=== PATIENT | female | born 1945 | race Caucasian/White ===

== ENCOUNTER 2017-11-03 14:40 | Inpatient (IN) | payer OTHER ==
[~2017-11-03] VITALS: Ht 162.6 cm; Wt 44.0 kg
[2017-11-03 14:40] VITALS: BP_SYST 129
--- NOTE | 2017-11-03 14:40 | NUR ---
Arrived via BLS ambulance for eval. She has been diagnosed with PNA and is under hospice care for COPD. Pt has been taking Z-arlette without improvement. Placed in room 7 . Placed on stove refinisher, blood pressure machine and pulse oximeter. To gown for exam. Side rails up. Report given to Renetta MARLOW.
--- NOTE | 2017-11-03 14:45 | NUR ---
Dr. Soto at bedside assessing patient.
[2017-11-03] MEDS ORDERED: NACL 0.9% 1,000 ML IV ONE (14:52)
[2017-11-03] MEDS ORDERED: IPRATROPIUM BROM 0.5 MG/2.5 ML VIAL.NEB (ATROVENT) IH ONE (15:00)
[2017-11-03] MEDS ORDERED: MAGNESIUM SULFATE 1 GM in NS 50 ML IV ONE (15:00)
[2017-11-03] MEDS ORDERED: ALBUTEROL SULFATE 0.083% 2.5 MG/3 ML VIAL.NEB IH ONE (15:00)
[2017-11-03] MEDS ORDERED: ASPIRIN 81 MG TAB.CHEW PO ONE (15:00)
[2017-11-03] MEDS ORDERED: methylPREDNISolone SOD SUCC/PF 62.5 MG/ML VIAL IVP ONE (15:00)
--- NOTE | 2017-11-03 15:45 | NUR ---
IV # 22 gauge angiocath placed to LFA. Use of asceptic technique. Opsite placed over site. Blood return noted. Blood for lab drawn from site. Flushed with 10 cc of normal saline. No evidence of infiltration noted. Patient tolerated well.
[2017-11-03] MEDS ORDERED: MAGNESIUM SULFATE 1 GM/2 ML VIAL ONE (15:52)
[2017-11-03 16:39] LABS: HEMATOCRIT 39.5 % (36-48); HEMOGLOBIN 12.7 g/dL (12.0-16.0); MEAN CORPUSCULAR HEMOGLOBIN 29 pg (27-31); MEAN CORPUSCULAR HGB CONC 32 % (32-36); MEAN CORPUSCULAR VOLUME 91 fL (79.0-98.0); PLATELET COUNT (AUTO) 397 K/uL (130-430); RED BLOOD CELL COUNT(AUTO) 4.33 MIL/uL (4.2-6.2); RED CELL DISTRIBUTION WIDTH 11.9 % (9.0-15.0); WHITE BLOOD COUNT (AUTO) 10.4 K/uL (4.8-10.8)
[2017-11-03 16:56] LABS: INR 0.9 (0.8-1.2); PROTHROMBIN TIME 9.3 SECS (9.5-12.5)
[2017-11-03 17:21] LABS: BAND % (MANUAL) 1 % (0-6); BASOPHILS % (MANUAL) 0 % (0-2); EOSINOPHILS % (MANUAL) 0 % (0-7); LYMPHOCYTES % (MANUAL) 1 % (20-46); MONOCYTES % (MANUAL) 4 % (0-11)
[2017-11-03] MEDS ORDERED: cefTRIAXone 1 GM in D5W 50 ML IV ONE (17:30)
[2017-11-03] MEDS ORDERED: cefTRIAXone 1 GM VIAL ONE (17:30)
[2017-11-03] MEDS ORDERED: IPRATROPIUM/ALBUTEROL SULFATE 3 ML AMPUL.NEB ONE (17:52)
[2017-11-03 18:02] LABS: BILIRUBIN,URINE NEGATIVE (NEGATIVE); BLOOD, URINE TRACE (NEGATIVE); CLARITY/URINE CLEAR (CLEAR); COLOR,URINE YELLOW (YELLOW); GLUCOSE,URINE TRACE (NEGATIVE); KETONES,URINE NEGATIVE (NEGATIVE); LEUKOCYTE ESTERASE ,URINE NEGATIVE (NEGATIVE); NITRITE, URINE NEGATIVE (NEGATIVE); PROTEIN URINE NEGATIVE (NEGATIVE); UROBILINOGEN,URINE 0.2 (0.2-1.0)
[2017-11-03 18:04] LABS: BACTERIA,URINE FEW /HPF (None Seen); MUCUS,URINE None Seen /LPF (None Seen); RBC,URINE NONE SEEN /HPF (0-3); WBC,URINE 0-3 /HPF (0-3)
[2017-11-03 18:20] LABS: CHLORIDE 93 mmol/L (98-107); CREATININE 0.41 mg/dL (0.55-1.30); GLUCOSE 162 mg/dL (70-99); POTASSIUM 4.4 mmol/L (3.5-5.1); SODIUM SERUM 129 mmol/L (136-145); UREA NITROGEN, BLOOD 15 mg/dL (8-21)
[2017-11-03 18:21] LABS: ANION GAP < 3 (5-15)
[2017-11-03 18:26] LABS: ALANINE AMINOTRANSFERASE 17 U/L (12-78); ALBUMIN 2.9 g/dL (3.4-4.8); AMYLASE 60 U/L (0-100); ASPARTATE AMINOTRANSFERASE 20 U/L (10-37); LIPASE 131 U/L (73-393); TOTAL BILIRUBIN 0.3 mg/dL (0.0-1.0)
--- NOTE | 2017-11-03 19:20 | NUR ---
Patient endorsed to incoming nurse Melani Wright
--- NOTE | 2017-11-03 19:30 | NUR ---
PT DAUGHTER STATES SHE HAS BEEN HAVING TROUBLE BREATHING FOR 1 WEEK NOW, HAS BEEN TAKING ANTIBIOTICS FOR RECENT DX OF PNA. PT STATES SHE HAS NOT HAD AN APPETITE FOR A FEW DAYS. A/OX4, AFEBRILE. SOB W/ EXERTION. O2SAT 93%. SAFETY PRECAUTIONS IN PLACE, WILL CONTINUE TO MONITOR.
[2017-11-03] MEDS ORDERED: AZITHROMYCIN 500 MG in NS 250 ML IV SCH (19:45)
[2017-11-03] MEDS ORDERED: ALPR0.2583 PO (20:47)
[2017-11-03] MEDS ORDERED: AMLO5TAB4 PO (20:47)
[2017-11-03] MEDS ORDERED: IPRA3AMP9 INH (20:50)
[2017-11-03] MEDS ORDERED: PRED20TA PO (20:50)
[2017-11-03] MEDS ORDERED: ALBU8.5H8 INH (20:54)
--- NOTE | 2017-11-03 21:00 | NUR ---
Patient will be admitted to care of DR. RINCON. Admitted to TELEMETRY unit. Will go to room 111B. Belongings list completed. Summary report printed. Report given at bedside TO ADMITTING NURSE ELE ONTIVEROS.
--- NOTE | 2017-11-03 21:02 | NUR ---
ADMISSION NOTE Received patient from ER via michele, received report from janet MARLOW. Patient admitted with diagnosis of copd exacerbation. Patient oriented to hospital routine, call light, toileting and safety-patient verbalized understanding. Patient is stable. Admission started.
[2017-11-03 21:17] VITALS: BP_SYST 147
--- NOTE | 2017-11-03 21:20 | NUR ---
RECEIVED PATIENT/REPORT FROM AN Patient arrived from ER. Report received from AN. Patient is alert, oriented and anxious. She requested Xanax. The nurse will call Dr. Beal for orders. Son is at the bed side. No pain or respiratory distress noted.
[2017-11-03] MEDS ORDERED: BUDE6HFA INH (21:21)
[2017-11-03] MEDS ORDERED: LEVO500T20 PO (21:22)
--- NOTE | 2017-11-03 21:25 | NUR ---
DR. PELLETIER PAGED. WAITING FOR RESPONSE
--- NOTE | 2017-11-03 21:35 | NUR ---
DR. Beal CALLED BACK Dr. Beal called back. An order for Xanax 0.5 mg X1 received. The nurse called the remote pharmacy for expedite verification and later administered the medication. Son left for the night. Patient fell asleep in bed. No distress or pain noted. Fall precautions in place. IV antibiotic also administered per MD order.
--- NOTE | 2017-11-03 21:58 | NUR ---
paged Dr. Beal for orders called spoke with George
[2017-11-03] MEDS ORDERED: methylPREDNISolone SOD SUCC 40 MG/ML VIAL IVP ONE (22:00)
[2017-11-03] MEDS ORDERED: ALPRAZolam 0.25 MG TABLET PO ONE (22:15)
[2017-11-03] MEDS ORDERED: AZITHROMYCIN 500 MG/VIAL (ZITHROMAX) IV ONE (22:16)
[2017-11-03] MEDS: NORMAL SALINE 5 ML DISP.SYRIN IVF SCH (22:43)
[2017-11-03] MEDS: IPRATROPIUM BROM 0.5 MG/2.5 ML VIAL.NEB (ATROVENT) INH SCH (23:29)
--- NOTE | 2017-11-04 00:10 | NUR ---
ROUNDS Patient in bed sleeping. No pain or distress noted.
[2017-11-04 00:36] VITALS: BP_SYST 123
[2017-11-04 01:45] VITALS: BP_SYST 123
--- NOTE | 2017-11-04 02:10 | NUR ---
ROUNDS Patient in bed sleeping. No distress or pain noted.
--- NOTE | 2017-11-04 02:29 | NUR ---
RAPID RESPONSE CALLED A little after the nurse left the room, the patient woke up and called the ACADEMIC SUPPORT SPECIALIST to be cleaned up. While she was being cleaned, she developed increasing SOB and discomfort, and she stated she cannot breath. Oxygen saturation was in the lower 80s. Patient was on 2 l O2 via nasal cannula. The ACADEMIC SUPPORT SPECIALIST called the nurse. The nurse together with other nurses went to the room where the patient was sitting in bed complaining of severe shortness of breath and anxiety. At the same time she developed tachycardia going up to 137 with multiple PVCs and PACs and elevated T-wave. The monitor at the nursing station was displaying V-tach at times. The nurse called rapid response. Rapid response was executed. 12-lead EKG, ABGs, ACCU check were executed, patient was placed on oxygen mask. The nurse called Dr. Beal at 02:[address] Beal returned the call at 02:35. The nurse informed her of the situation. Dr. Beal ordered Amiodarone 150 mg IVp X1 followed up by Amiodarone drip dosed by pharmacy. She also ordered Xanax 0.5 mgX1 and breathing treatment. The nurse called the remote pharmacy too speed up the verification. She spoke with Michelle. Orders executed. The rapid response ended at 02:55 am.
[2017-11-04] MEDS ORDERED: AMIODARONE HCL 150 MG/3ML VIAL IVP ONE (02:45)
[2017-11-04] MEDS ORDERED: AMIODARONE HCL 150 MG/3ML VIAL ONE (02:54)
[2017-11-04] MEDS ORDERED: AMIODARONE HCL 900 MG in D5W 482 ML IV SCH (03:00)
[2017-11-04] MEDS ORDERED: ALPRAZolam 0.25 MG TABLET PO ONE (03:00)
[2017-11-04] MEDS ORDERED: COMMUNICATION ORDER XX ONE (03:00)
[2017-11-04] MEDS: IPRATROPIUM BROM 0.5 MG/2.5 ML VIAL.NEB (ATROVENT) INH SCH ×4 (03:17→19:52)
[2017-11-04] MEDS ORDERED: AMIODARONE HCL 900 MG/18 ML VIAL IV ONE (04:05)
--- NOTE | 2017-11-04 04:30 | NUR ---
AMIODARONE DRIP STARTED Amiodarone drip started dosed per eMAR instructions from pharmacy. Patient requested the nurse to stay next to her bed and wave with a paper, because that "helped her breathing a lot". Oxygen saturation went up to 94%. Patient refused the Venturi mask and wanted to go back to the nasal cannula. The RT put her on 2L O2 NC. SaO2 94-97%. Oxygen rate decreased to 1 L/min to maintain the oxygen saturation not higher than 93%.
[2017-11-04] MEDS: NORMAL SALINE 5 ML DISP.SYRIN IVF SCH ×2 (06:00→22:00)
[2017-11-04 08:00] VITALS: BP_SYST 154
--- NOTE | 2017-11-04 08:00 | NUR ---
initial notes rec patient asleep but arousable to stimuli. ivf of amiodarone infusing well. no infiltration noted. resp easy and unlabored. bed in low position and side rails up and locked.call light within reached and knows when to call for assistance.
--- NOTE | 2017-11-04 08:53 | NUR ---
CLOSING NOTE Patient sitting in bed resting. She requested a bed hill. No distress or pain noted. After the administration of Xanax around 04:00, the patient fell asleep and slept peacefully until around 07:00. Oxygen saturation remained 97-98% on 1L/min oxygen. HR in the lower 100s, sinus tachycardia. Fall precautions in place.
[2017-11-04] MEDS ORDERED: cefTRIAXone 1 GM VIAL IM SCH (09:00)
--- NOTE | 2017-11-04 10:18 | NUR ---
CONSULTATION PAGED REASON FOR CONSULTATION:COPD WAS CONSULT CALLED?:Y PERSON WHO WAS NOTIFIED:LEFT A VOICEMAIL WITH [facility] CONSULTING PHYSICIAN:SHANNAN BELTRAN LEAD PERFORMANCE SUPPORT ANALYST SPECIALTY:PULMONARY LEAD PERFORMANCE SUPPORT ANALYST PHONE NUMBER:[phone] REQUESTING PHYSICIAN:DEYANIRA WILKERSON
--- NOTE | 2017-11-04 10:30 | NUR ---
rounds amiodarone rate was titrated to 16.7 cc/hr and heart rate is ranging from 80 to 84. no c/o of chest pain noyed. daughter at bedside.
[2017-11-04] MEDS ORDERED: LevALBUTEROL HCL 1.25 MG/0.5 ML *CONC.* VIAL.NEB (XOPENEX CONC.) INH PRN (11:00)
[2017-11-04] MEDS ORDERED: IPRATROPIUM BROM 0.5 MG/2.5 ML VIAL.NEB (ATROVENT) INH PRN (11:00)
[2017-11-04 11:30] VITALS: BP_SYST 137
[2017-11-04] MEDS ORDERED: ENOXAPARIN SODIUM 40 MG/0.4 ML SYRINGE SUBCUT ONE (12:30)
[2017-11-04] MEDS: NACL 0.9% 1,000 ML IV SCH (12:49)
[2017-11-04] MEDS: ALPRAZolam 0.25 MG TABLET PO PRN ×2 (12:57→19:50)
[2017-11-04] MEDS: LevALBUTEROL HCL 1.25 MG/0.5 ML *CONC.* VIAL.NEB (XOPENEX CONC.) INH SCH ×2 (13:38→19:52)
--- NOTE | 2017-11-04 14:00 | NUR ---
rounds iv drip of amiodarone was infiltrated. notified charge nurse that hr a this time is 80. stated to call dr batista if it needs to be resumed. awaiting to call back.
[2017-11-04 15:18] VITALS: BP_SYST 125
--- NOTE | 2017-11-04 16:25 | NUR ---
CONSULTATION PAGED REASON FOR CONSULTATION:COPD WAS CONSULT CALLED?:Y PERSON WHO WAS NOTIFIED:ERINN CONSULTING PHYSICIAN:DANIEL VALERIO FOLDER INSPECTOR SPECIALTY:CARDIO FOLDER INSPECTOR PHONE NUMBER:[phone] REQUESTING PHYSICIAN:DEYANIRA WILKERSON
--- NOTE | 2017-11-04 16:29 | NUR ---
rounds dr batista finally called and relayed that amiodarone drip was hold. pt iv was infiltrated . stated to resume and ordered a diamond driller helper for consult.
--- NOTE | 2017-11-04 19:00 | NUR ---
closing notes endorsed to night nurse re a scraper burrer will see patient for consult. sal kinney was instructed to call again. no sob noted. noted patient is anxious and wanted xanax. no sob noted.
[2017-11-04] MEDS ORDERED: MEPERIDINE HCL/PF 50 MG/ML AMP IVP PRN (20:00)
[2017-11-04] MEDS: AZITHROMYCIN 500 MG in D5W 250 ML IV SCH (22:29)
--- NOTE | 2017-11-04 23:21 | NUR ---
LUIS MANUEL CRUZ 43 REASON FOR ADMISSION: SOB, COPD EXACERBATION HIGH RISK PROGRAM: NONE; [facility] COMMORBIDITIES: TELE. DR RILEY IN CONSULT, SOLUMEDROL, BREATHING TREATMENT, 02 PRIOR LEVEL OF FUNCTIONS: ABLE TO AMBULATE WITH FWW, Patient resides AT [facility]. HAS CAREGIVERS X2 PAYING PRIVATELY BY FAMILY, Patient able to perform : ADLS WITH ASSISTANCE DME: FWW, OXYGEN AND NEBS FOR HOME USE SUPPORT SYSTEM: 2 SONS :MAYRA CRUZ FROM [place] VISITING[place]YRA AT BEDSIDE. LIGIA CRUZ FROM [facility]: A/O ADVANCE CARE PLANNING: CODE STATUS : FULL CODE ANTICIPATE DISCHARGE NEEDS: POSSIBLE SNF VS HH. WILL CONTINUE TO FF. NINA YEE RN/CM T [phone]
[2017-11-04 23:33] VITALS: BP_SYST 130
[2017-11-05] MEDS ORDERED: cefTRIAXone 1 GM IVPB PREMIX 50 ML IV ONE (00:40)
[2017-11-05] MEDS: IPRATROPIUM BROM 0.5 MG/2.5 ML VIAL.NEB (ATROVENT) INH SCH ×4 (00:42→18:52)
[2017-11-05] MEDS: LevALBUTEROL HCL 1.25 MG/0.5 ML *CONC.* VIAL.NEB (XOPENEX CONC.) INH SCH ×4 (00:42→18:52)
[2017-11-05] MEDS: CEFTRIAXONE SOD 1 GM/ DEXTROSE,ISO 50 ML PREMIX IV SCH ×2 (00:52→21:43)
[2017-11-05] MEDS: ALPRAZolam 0.25 MG TABLET PO PRN ×3 (06:42→21:43)
[2017-11-05] MEDS: NORMAL SALINE 5 ML DISP.SYRIN IVF SCH ×3 (06:43→22:36)
[2017-11-05 07:36] LABS: BASOPHILS % (AUTO) 0.3 % (0.0-2.0); EOSINOPHILS % (AUTO) 0.3 % (0.0-4.0); HEMATOCRIT 35.7 % (36-48); LYMPHOCYTES # (AUTO) 1.4 K/uL (1.0-5.5); LYMPHOCYTES % (AUTO) 13.6 % (20.5-51.5); MEAN CORPUSCULAR HEMOGLOBIN 30 pg (27-31); MEAN CORPUSCULAR HGB CONC 34 % (32-36); MEAN CORPUSCULAR VOLUME 90 fL (79.0-98.0); NEUTROPHILS % (AUTO) 75.8 % (40.0-70.0); PLATELET COUNT (AUTO) 460 K/uL (130-430); RED BLOOD CELL COUNT(AUTO) 3.96 MIL/uL (4.2-6.2); RED CELL DISTRIBUTION WIDTH 11.9 % (9.0-15.0); WHITE BLOOD COUNT (AUTO) 10.4 K/uL (4.8-10.8)
--- NOTE | 2017-11-05 07:45 | NUR ---
Opening note Pt resting in bed receiving breathing treatment, no s/s of distress, no c/o pain or discomfort. Received report and care endorsed by RN, (registry). Pt rested well but has intermittent anxiety. Pt ammnioderone drip completed overnight. Pt ALOC x 4, reviewed safety precautions and call light system. Bed in low position with call light within reach. Pt agrees to call for needed assistance.
[2017-11-05 07:55] LABS: CALCIUM 8.7 mg/dL (8.4-11.0); CHLORIDE 99 mmol/L (98-107); CREATININE 0.34 mg/dL (0.55-1.30); GLUCOSE 95 mg/dL (70-99); POTASSIUM 3.2 mmol/L (3.5-5.1); SODIUM SERUM 138 mmol/L (136-145); UREA NITROGEN, BLOOD 14 mg/dL (8-21)
[2017-11-05 08:00] VITALS: BP_SYST 136
[2017-11-05 08:10] LABS: ANION GAP 4 (5-15)
[2017-11-05] MEDS ORDERED: ALPRAZolam 0.25 MG TABLET PO ONE (09:00)
[2017-11-05] MEDS ORDERED: cefTRIAXone 1 GM VIAL IV SCH (09:00)
--- NOTE | 2017-11-05 09:00 | NUR ---
Issue with medication Pt requested xanex, when I looked, it was listed as administered earlier by the registry nurse, but pt adamantly denies receiving it (ALOCx4). Informed charge who investigated and one time order was issued.
[2017-11-05] MEDS: ENOXAPARIN SODIUM 40 MG/0.4 ML SYRINGE SUBCUT SCH (09:30)
--- NOTE | 2017-11-05 09:33 | NUR ---
@3417 PT REFUSED ABG DRAW. MD GARCIA NOTIFIED.
--- NOTE | 2017-11-05 09:35 | NUR ---
Nutrition Update Jose Roberto Scale 14 noted. Pt admitted for COPD. Diet: 2 gm Na, vegetarian lacto-ovo, Boost Plus BID BMI: 16.8 kg/m2 RD to follow per nutrition care standards.
--- NOTE | 2017-11-05 10:00 | NUR ---
Rounding note Pt resting in bed w/ no s/s of distress and no c/o pain. Family remains at bedside.
[2017-11-05 11:35] VITALS: BP_SYST 144
--- NOTE | 2017-11-05 12:00 | NUR ---
Rounding note Changed pad under pt w/ family assistance, no s/s of distress or anxiety and no c/o pain at this time. Pt had experienced loss of appetite recently. Family at bedside.
--- NOTE | 2017-11-05 12:46 | NUR ---
Dietitian Recommendations * Recommend continuing 2 gm Na, vegetarian lacto-ovo, Boost Plus BID (oral supplement provides an additional 720 kcal/day and 28 gm protein/day) * Recommend continuing snacks TID in-between meals LP, RD Please refer to Nutrition Assessment for details.
--- NOTE | 2017-11-05 14:00 | NUR ---
Rounding note pt resting in bed easily aroused to voice no s/s of distress, no c/o pain by the family
[2017-11-05] MEDS: NACL 0.9% 1,000 ML IV SCH (14:12)
[2017-11-05] MEDS ORDERED: POTASSIUM CHLORIDE 20 MEQ TAB.PRT.SR PO ONE (14:30)
[2017-11-05] MEDS ORDERED: methylPREDNISolone SOD SUCC/PF 62.5 MG/ML VIAL IVP ONE (14:30)
[2017-11-05 15:11] VITALS: BP_SYST 157
[2017-11-05] MEDS: 0.45% NACL 1,000 ML IV SCH (15:20)
--- NOTE | 2017-11-05 18:00 | NUR ---
Rounding note Pt resting w/ no s/s of distress, awaiting breathing treatment. Discusses xanex administration wtih family, explaining that it is to be given TID. Bed remains in low position with call light at hand and family at bedside.
[2017-11-05 20:30] VITALS: BP_SYST 154
--- NOTE | 2017-11-05 20:35 | NUR ---
PM ASSESSMENT: PATIENT IN BED AWAKE ,ORIENTED X3. DAUGHTER AT BEDSIDE, DISCUSSING ABOUT NEED OF SYMBICORT WHICH PATIENT TAKES AT HOME 2X A DAY.TOLD HER WILL INFORM MD ESCOBAR. DAUGHTER REQUEST PATIENT NEED TO BE CHANGED DUE TO URINE INCONTINENT. CALL LIGHT WITHIN REACH. BED IN LOW POSITION.
[2017-11-05 20:38] VITALS: BP_SYST 154
--- NOTE | 2017-11-05 21:00 | NUR ---
HYGIENE: PARTIAL BATH RENDERED. GLORIA CARE DONE.
--- NOTE | 2017-11-05 21:15 | NUR ---
Closing note Pt care endorsed and report given to NOC shift nurse.
--- NOTE | 2017-11-05 21:40 | NUR ---
MEDS ADMIN: HAVING DIFFICULTY BREATHING AFTER HYGEINE. ANXIOUS. XANAX AND REST OF MEDS GIVEN. RT HERE TO GIVE EXTRA DOSE BREATHING TREATMENT.
[2017-11-05] MEDS: methylPREDNISolone SOD SUCC/PF 62.5 MG/ML VIAL IVP SCH (21:43)
--- NOTE | 2017-11-05 21:55 | NUR ---
Paged Called Paged Dr. Yin, Dr. Lomax electronic gluing machine operator, dialed [phone], s/w Jules.
[2017-11-05] MEDS ORDERED: FLUTICASONE/VILANTEROL 1 EACH BLST.W.DEV INH ONE (22:30)
[2017-11-05] MEDS: AZITHROMYCIN 500 MG in D5W 250 ML IV SCH (22:35)
--- NOTE | 2017-11-05 23:20 | NUR ---
RESTING QUITELY. ON RIGHT SIDE POSITION. FAMILY DOES NOT TO BE TURN.
--- NOTE | 2017-11-06 00:30 | NUR ---
RESTING QUITELY. WITH OXYGEN ON.
[2017-11-06] MEDS: IPRATROPIUM BROM 0.5 MG/2.5 ML VIAL.NEB (ATROVENT) INH SCH ×4 (03:36→19:00)
[2017-11-06] MEDS: LevALBUTEROL HCL 1.25 MG/0.5 ML *CONC.* VIAL.NEB (XOPENEX CONC.) INH SCH ×4 (03:37→19:00)
[2017-11-06 05:22] VITALS: BP_SYST 142
--- NOTE | 2017-11-06 05:30 | NUR ---
HYGIENE: INCONTINENT OF URINE. GLORIA CARE DONE.REFUSE TO TURN TO LEFT SIDE. BREATHS EASILY ON RIGHT SIDE POSITION.
[2017-11-06] MEDS: methylPREDNISolone SOD SUCC/PF 62.5 MG/ML VIAL IVP SCH ×3 (05:51→21:05)
[2017-11-06] MEDS: NORMAL SALINE 5 ML DISP.SYRIN IVF SCH ×3 (05:51→21:06)
[2017-11-06] MEDS: ALPRAZolam 0.25 MG TABLET PO PRN ×2 (06:28→12:40)
--- NOTE | 2017-11-06 06:30 | NUR ---
CLOSING: XANAX PO GIVEN PER HER REQUESTS. ALL NEEDS WERE ATTENDED. NO ACUTE DISTRESS.
[2017-11-06 07:39] LABS: BASOPHILS # (AUTO) 0.1 K/uL (0.0-0.2); BASOPHILS % (AUTO) 0.9 % (0.0-2.0); HEMATOCRIT 41.6 % (36-48); HEMOGLOBIN 13.7 g/dL (12.0-16.0); LYMPHOCYTES # (AUTO) 0.7 K/uL (1.0-5.5); LYMPHOCYTES % (AUTO) 7.5 % (20.5-51.5); MEAN CORPUSCULAR HEMOGLOBIN 30 pg (27-31); MEAN CORPUSCULAR HGB CONC 33 % (32-36); MEAN CORPUSCULAR VOLUME 89 fL (79.0-98.0); MONOCYTES # (AUTO) 0.2 K/uL (0.0-1.0); MONOCYTES % (AUTO) 1.9 % (1.7-9.3); NEUTROPHILS # (AUTO) 7.9 K/uL (1.8-7.7); NEUTROPHILS % (AUTO) 89.7 % (40.0-70.0); PLATELET COUNT (AUTO) 559 K/uL (130-430); RED BLOOD CELL COUNT(AUTO) 4.66 MIL/uL (4.2-6.2); RED CELL DISTRIBUTION WIDTH 11.7 % (9.0-15.0); WHITE BLOOD COUNT (AUTO) 8.9 K/uL (4.8-10.8)
[2017-11-06 07:48] LABS: ANION GAP 7 (5-15); CALCIUM 9.1 mg/dL (8.4-11.0); CHLORIDE 91 mmol/L (98-107); CREATININE 0.25 mg/dL (0.55-1.30); GLUCOSE 128 mg/dL (70-99); SODIUM SERUM 130 mmol/L (136-145); UREA NITROGEN, BLOOD 11 mg/dL (8-21)
[2017-11-06 08:00] VITALS: BP_SYST 146
--- NOTE | 2017-11-06 08:00 | NUR ---
Opening note Pt resting, easily arouse to voice, ALOCx4, no s/s of distress, no c/o pain or discomfort. Family at bedside. Reviewed care plan for the day with patient and family as well as safety procedures, pt educated about need to change positions but refused to turn. Bed in low position and call light is within reach. Family agrees to call for assistance.
[2017-11-06] MEDS ORDERED: FLUTICASONE/VILANTEROL 1 EACH BLST.W.DEV INH SCH (09:00)
--- NOTE | 2017-11-06 10:00 | NUR ---
Rounding note Pt resting in bed with no s/s of SOB or distress, no c/o pain or discomfort. Charge nurse, Marion, talked to the pt about shifting weight and pt again refused to be turned. Family remains at bedside and agrees to call for assistance.
[2017-11-06] MEDS: ENOXAPARIN SODIUM 40 MG/0.4 ML SYRINGE SUBCUT SCH (10:18)
[2017-11-06] MEDS: AMIODARONE HCL 200 MG TABLET PO SCH (10:20)
--- NOTE | 2017-11-06 12:00 | NUR ---
Rounding note Pt resting at bed, no s/s of SOB or distress, no c/o pain or discomfort. Family is making decisions about possible transfer to hospice and remains at bedside. Pt changed but again refused t be turned.
--- NOTE | 2017-11-06 12:37 | NUR ---
Social Service Note: SORORITY SUPERVISOR received order for hospice evaluation with [facility]; [facility] has faxed pt's information to [facility] ([phone] [phone]). SORORITY SUPERVISOR will remain available for support and will follow up as needed. Addendum: 11/06/17 at 1532 by Lissette Brito LCSW KAREN spoke to Alondra at [facility]; she has made contact with pt's son; the inpatient hospice unit is currently full. Alondra indicated that inpatient level if appropriate could be provided at a local SNF if needed. Pt's son has asked for Alondra to reach out to him after 4:00pm. Alondra will work on meeting with pt's son for consents and then work on pt's discharge once consents are signed.
[2017-11-06 12:53] VITALS: BP_SYST 138
[2017-11-06] MEDS ORDERED: ALPRAZolam 0.25 MG TABLET PO SCH (13:00)
[2017-11-06] MEDS ORDERED: MILK OF MAGNESIA 30 ML UDC PO ONE (13:30)
--- NOTE | 2017-11-06 14:00 | NUR ---
Rounding note pt resting in bed with increasing anxiety, medication administered to help with anxiety. No s/s of distress no c/o pain or discomfort. Pt ans family refuse repositioning
--- NOTE | 2017-11-06 16:00 | NUR ---
Rounding note pt resting with family at bedside, no c/o pain, discomfort or anxiety. pt again refuses to be repositioned. Bed remains in low position with call light with in reach and family agrees to call for assistance.
[2017-11-06 16:06] VITALS: BP_SYST 130
--- NOTE | 2017-11-06 18:00 | NUR ---
Rounding note/Pharmacy Pharmacy has adjusted times for xanex administration to Q6 hr (04/29/18) to better match what the pt is accustom to at home. Will administer scheduled dose as pt is having difficulty with managing her anxiety. No c/o pain or discomfort, family remains at bedside. Bed in low position with call light within reach.
[2017-11-06] MEDS: ALPRAZolam 0.25 MG TABLET PO SCH ×2 (18:08→23:43)
[2017-11-06 19:00] VITALS: BP_SYST 129
--- NOTE | 2017-11-06 19:00 | NUR ---
OPENING NOTES Received report from malinda Jasso. Patient is sleeping comfortably with her daughter bedside. Patient is not in any acute distress 129/50 100 17 97% (3L NC) 98.2. Fall precautions noted/implemented. Noted IV to Left FA 22G with 1/2 NS fluids running @ 40ml/hr. Introduced myself and updated the whiteboard. Bed to lowest position and locked, rails are up, call light within her reach, bed alarm activated. Will continue to monitor patient throughout shift.
--- NOTE | 2017-11-06 19:51 | NUR ---
Rounding note Pt resting but easily arouse to voice, ALOCx4, no s/s of distress, no c/o pain or discomfort. some family remains at bedside. Gave report to NOC shift nurse and endorsed care.
--- NOTE | 2017-11-06 20:00 | NUR ---
TURNING/REPOSITIONING Patient and her daughter are refusing turning/repositioning Q2.
--- NOTE | 2017-11-06 21:00 | NUR ---
Breathing Treatment Request Patients daughter says her mother is now awake and would like a breathing treatment. Contacted Respiratory and spoke to Jeramie, he will administer.
[2017-11-06] MEDS: AZITHROMYCIN 500 MG in D5W 250 ML IV SCH (21:07)
[2017-11-06] MEDS: CEFTRIAXONE SOD 1 GM/ DEXTROSE,ISO 50 ML PREMIX IV SCH (21:29)
[2017-11-06] MEDS: 0.45% NACL 1,000 ML IV SCH (21:29)
--- NOTE | 2017-11-06 21:29 | NUR ---
IV INFILTRATION After starting Azithromax as scheduled, patient complains of burning at the IV site. IV site is infiltrated. Approx 1/4 of medication is administered. Patient and her daughter request that we not re-start IV. DC'd IV as requested. They are requesting PO meds. Will contact doctor for order. NOTE Rocephin abx was not administered due to IV infiltration
--- NOTE | 2017-11-06 23:17 | NUR ---
PAGED I PAGED [phone] DR. CHAPARRO OFFAL ROLLER SHAWN I SPOKE WITH VISHAL SANCHEZ
--- NOTE | 2017-11-06 23:20 | NUR ---
PAGED DR. LOMAX Paged Dr. Lomax. Need to get antibiotics and all IVP medications changed to PO medications, as patient refused IV re-insertion.
--- NOTE | 2017-11-06 23:59 | NUR ---
ROUNDS Patient is awake/alert and talking with her daughter. Administered Xanax as scheduled: 151/74 103 15. Patients daughter says in about an hour, another family member will come and take her place while she gets some rest in the quiet room. At this time they do not need anything. Bed to lowest position and locked, rails up, call light within reach, bed alarm activated. Will continue to monitor patient.
[2017-11-07] VITALS: BP_SYST 151
--- NOTE | 2017-11-07 | NUR ---
DR. SHANKAR CHAPARRO CALLED BACK @ [phone]
--- NOTE | 2017-11-07 | NUR ---
PAGED I PAGED [phone] DR. CHAPARRO RELATIONSHIP COUNSELOR SHAWN I SPOKE WITH RYAN SANCHEZ
[2017-11-07] MEDS ORDERED: LEVOFLOXACIN 500 MG TABLET PO ONE (00:15)
--- NOTE | 2017-11-07 00:18 | NUR ---
Spoke to Dr. Lomax Advised that patient and her daughter have refused re-insertion of IV. DC'd Rocephin, Azithromax, Solu-medrol, 1/2NS. Received telephone order for Levoquin 500mg one time now, Prednisone 20mg one time scheduled for 11/07 0900, as patient did receive her schedueld 2200 dose of 11/06. Ordered noted/acknowledged/carried out.
[2017-11-07] MEDS: LevALBUTEROL HCL 1.25 MG/0.5 ML *CONC.* VIAL.NEB (XOPENEX CONC.) INH SCH ×3 (01:00→13:00)
[2017-11-07] MEDS: IPRATROPIUM BROM 0.5 MG/2.5 ML VIAL.NEB (ATROVENT) INH SCH ×3 (01:00→13:00)
--- NOTE | 2017-11-07 03:25 | NUR ---
Patient and family complains of patient feeling hot and trouble breathing. Temp is 98.8 and O2 sat 96-97% (3LNC). Contacted RT for PRN breathing treatment. Will continue to monitor patient.
--- NOTE | 2017-11-07 04:30 | NUR ---
Patient would like to be moved up/re-adjusted in bed. Re-adjusted patient in bed for comfort. Again, patient refuses to be turned/repositioned side to side. She only wants to lay on her right side. At this time she does not need anything else. Her niece is bedside. Will continue to monitor patient.
[2017-11-07] MEDS: ALPRAZolam 0.25 MG TABLET PO SCH ×2 (05:37→13:10)
--- NOTE | 2017-11-07 07:05 | NUR ---
CLOSING NOTE Bedside SBAR report given to [facility] nurse Andreia. Patient is resting comfortably, she is in no acute distress. Her son is bedside. While discussing medications, her son states the only medications that he wants administered is Xanax and breathing treatments. All anticipated needs and expectations met by warehouse supervisor 3rd shift RN. Fall precautions were implemented/upheld during shift. Bed to lowest position, bed alarm activated, side rails up, and her call light is within reach.
[2017-11-07 08:40] VITALS: BP_SYST 144
[2017-11-07] MEDS ORDERED: PREDNISONE 20 MG TABLET PO ONE (09:00)
[2017-11-07] MEDS: ENOXAPARIN SODIUM 40 MG/0.4 ML SYRINGE SUBCUT SCH (09:00)
[2017-11-07] MEDS: AMIODARONE HCL 200 MG TABLET PO SCH (09:42)
--- NOTE | 2017-11-07 09:44 | NUR ---
Routine Scheduled meds given per order. Patient stable with son at bedside.
[2017-11-07 10:19] VITALS: BP_SYST 144
--- NOTE | 2017-11-07 11:02 | NUR ---
ATTENDING MD DR GARCIA WAS CALLED RE: DISCHARGED ORDER TO [facility] WITH DR KAUFMAN ADMITTING
[2017-11-07 11:20] VITALS: BP_SYST 135
[2017-11-07 11:45] VITALS: BP_SYST 144
--- NOTE | 2017-11-07 12:30 | NUR ---
Called report to Litzy Short at [facility]. Patient will go to Room 108.
--- NOTE | 2017-11-07 12:40 | NUR ---
Dr. Stanton at bedside.
--- NOTE | 2017-11-07 13:11 | NUR ---
Routine Scheduled med given per order. Patient stable with daughterRossi at bedside.
--- NOTE | 2017-11-07 13:50 | NUR ---
Discharge Patient transferred in stable condition to [facility]; accompanied by daughter, Vic.
== END 2017-11-07 13:50 | disposition hospice, inpatient (51) | DRG 189 ==
LOC: SED 14:40 → STU 19:34 → SMU 11-06 17:42
PROVIDERS: ATTEND Internal Medicine Hospice and Palliative Medicine
DX: J96.21 Acute and chronic respiratory failure with hypoxia (principal); J44.1 Chronic obstructive pulmonary disease with (acute) exacerbation; Z99.81 Dependence on supplemental oxygen; K59.00 Constipation, unspecified; R00.0 Tachycardia, unspecified; F41.9 Anxiety disorder, unspecified; I10 Essential (primary) hypertension; Z85.3 Personal history of malignant neoplasm of breast; Z87.891 Personal history of nicotine dependence; Z79.899 Other long term (current) drug therapy
CPT/HCPCS: 36415; 36600; 71010; 80048; 80053; 81000-TC; 82150-TC; 82803-TC; 82962; 83690-TC; 84484; 85007; 85025; 85027; 85610-TC; 85730-TC; 86710; 87081; 93005; 93306; 94640; 94760; 96374; 99285; J0282; J0456; J0696; J1030; J1650; J2930; J3475; J7030; J7050; J7060; J7512